=== PATIENT | male | born 1965 | race Two or more races ===

== ENCOUNTER 2024-10-25 08:48 | Emergency (ER) | payer SELFPAY ==
[~2024-10-25] VITALS: Ht 162.6 cm; Wt 71.0 kg
[2024-10-25 09:20] VITALS: BP 121/82; PULSE 68; RESP 18; TEMP 98.7; O2SAT 97
== END 2024-10-25 11:05 | disposition left against medical advice (07) ==
LOC: ER 08:48
DX: R53.83 Other fatigue (principal); Z53.21 Procedure and treatment not carried out due to patient leaving prior to being seen by health care provider